=== PATIENT | male | born 1965 ===

== ENCOUNTER 2023-08-04 05:45 | Day surgery (SDC) | payer OTHER ==
[2023-08-04] MEDS ORDERED: PERCOCET 5-3251 EACH PO (10:58)
[2023-08-04] MEDS ORDERED: NEURONTIN800 MG PO (10:58)
[2023-08-04] MEDS ORDERED: SURFAK240 M1 PO (10:58)
[2023-08-04] MEDS ORDERED: MIRALAX510 GM PO (10:59)
[2023-08-04] MEDS ORDERED: TYLENOL ARTHRI650 MG PO (11:01)
== END 2023-08-04 15:25 | disposition home or self-care (01) ==
LOC: CIR.AMB 05:45
PROVIDERS: ATTEND Surgery
DX: K40.90 Unilateral inguinal hernia, without obstruction or gangrene, not specified as recurrent (principal); K43.9 Ventral hernia without obstruction or gangrene; Z20.822 Contact with and (suspected) exposure to COVID-19
CPT/HCPCS: 49650; 49594; 15734; C1781